=== PATIENT | female | born 1985 | race Caucasian/White ===

== ENCOUNTER 2019-11-29 11:57 | Emergency (ER) | payer OTHER ==
[~2019-11-29] VITALS: Ht 157.5 cm; Wt 59.9 kg
[2019-11-29] MEDS ORDERED: OBTREX DHA COM1 EACH (12:13)
== END 2019-11-29 17:23 | disposition home or self-care (01) ==
LOC: ER 11:57
DX: O20.8 Other hemorrhage in early pregnancy (principal); Z03.818 Encounter for observation for suspected exposure to other biological agents ruled out; Z3A.13 13 weeks gestation of pregnancy

== ENCOUNTER 2020-05-18 12:15 | Inpatient (IN) | payer OTHER ==
[~2020-05-18] VITALS: Ht 157.5 cm; Wt 2.3 kg
[~2020-05-18 12:15] MED LIST: OBTREX DHA COM1 EACH
[2020-05-21] MEDS ORDERED: FLUOCINONIDE15 GM (08:40)
== END 2020-05-24 16:25 | disposition home or self-care (01) | DRG 788 ==
LOC: LDR 05-21 03:40 → OB/GYN 05-21 18:48 → SURG-SUITE 05-21 19:32 → SURH 06-01 12:15
PROVIDERS: ADMIT Obstetrics & Gynecology Maternal & Fetal Medicine; ATTEND Obstetrics & Gynecology Maternal & Fetal Medicine
PROC: 4A1HXFZ Monitoring of Products of Conception, Cardiac Rhythm, External Approach (ICD-10-PCS; 2020-05-21)
PROC: 10D00Z1 Extraction of Products of Conception, Low, Open Approach (ICD-10-PCS; principal; 2020-05-21 16:00)
DX: O65.9 Obstructed labor due to maternal pelvic abnormality, unspecified (principal); O62.1 Secondary uterine inertia; O99.824 Streptococcus B carrier state complicating childbirth; Z37.0 Single live birth; Z3A.38 38 weeks gestation of pregnancy; Z20.822 Contact with and (suspected) exposure to COVID-19